=== PATIENT | female | born 1965 | race Caucasian/White ===

== ENCOUNTER 2019-06-23 16:06 | Emergency (ER) | payer BC ==
[~2019-06-23] VITALS: Ht 162.6 cm; Wt 47.2 kg
[2019-06-23 16:06] VITALS: BP 124/79
[2019-06-23] MEDS ORDERED: ALBUTEROL SULFATE/IPRATROPIU 3 ML SOL IH ONE (16:40)
[2019-06-23] MEDS ORDERED: KETOROLAC 30 MG/ML VIAL IVP ONE (16:40)
[2019-06-23] MEDS ORDERED: KETOROLAC 30 MG/ML VIAL IM ONE (17:05)
[2019-06-23 17:22] LABS: BASOPHILS # (AUTO) 0.1 K/uL (0.00-0.22); BASOPHILS % (AUTO) 1.1 % (0.0-2.0); EOSINOPHILS # (AUTO) 0.3 K/uL (0-0.4); EOSINOPHILS % (AUTO) 5.9 % (0.0-4.0); HEMATOCRIT 40.7 % (36-48); HEMOGLOBIN 13.2 g/dL (12.0-16.0); LYMPHOCYTES # (AUTO) 2.3 K/uL (2.5-16.5); LYMPHOCYTES % (AUTO) 46.7 % (20.5-51.1); MEAN CORPUSCULAR HEMOGLOBIN 28 pg (27-31); MEAN CORPUSCULAR HGB CONC 32 g/dL (33-37); MEAN CORPUSCULAR VOLUME 87.7 fL (80-94); MONOCYTES # (AUTO) 0.5 K/uL (0.8-1.0); MONOCYTES % (AUTO) 9.6 % (1.7-9.3); NEUTROPHILS # (AUTO) 1.8 K/uL (1.8-7.7); NEUTROPHILS % (AUTO) 36.7 % (42.2-75.2); PLATELET COUNT (AUTO) 211 K/uL (140-450); RED BLOOD CELL COUNT(AUTO) 4.63 MIL/uL (4.20-5.40); WHITE BLOOD COUNT (AUTO) 4.9 K/uL (4.8-10.8)
[2019-06-23 17:34] LABS: ANION GAP 11.3 (8-16); CARBON DIOXIDE 29.7 mmol/L (21-32); CREATININE 0.8 mg/dL (0.6-1.3)
[2019-06-23] MEDS ORDERED: NACL 0.9% 1,000 ML IV ONE (17:40)
[2019-06-23 17:41] LABS: ALBUMIN 3.6 g/dL (3.4-5.0); TOTAL BILIRUBIN 0.3 mg/dL (0.0-1.0)
[2019-06-23 18:06] LABS: APPEARANCE,URINE CLEAR (CLEAR); BILIRUBIN,URINE NEGATIVE (NEGATIVE); BLOOD, URINE NEGATIVE (NEGATIVE); COLOR,URINE YELLOW (YELLOW); LEUKOCYTE ESTERASE ,URINE TRACE (NEGATIVE); NITRITE, URINE NEGATIVE (NEGATIVE); UGLUCOSE NEGATIVE (NEGATIVE)
[2019-06-23 18:12] LABS: BARBITURATE, URINE NEG. ng/ml (NEG <=200); BENZODIAZEPINE, URINE NEG. ng/mL (NEG <=200); CANNABINOID, URINE POS. ng/mL (NEG <=50); COCAINE, URINE NEG. ng/mL (NEG <=300); OPIATE, URINE NEG. ng/mL (NEG <=2000); PHENCYCLIDINE SCREEN,URINE NEG. ng/mL (NEG <=25)
[2019-06-23 18:31] LABS: RBC,URINE 0-5 /HPF (0-5)
[2019-06-23 19:15] VITALS: BP 122/85
== END 2019-06-23 19:15 | disposition home or self-care (01) ==
LOC: MED 16:06
DX: R53.1 Weakness (principal); R42 Dizziness and giddiness; R51 Headache; F15.90 Other stimulant use, unspecified, uncomplicated; F17.290 Nicotine dependence, other tobacco product, uncomplicated; Z90.49 Acquired absence of other specified parts of digestive tract; Z71.6 Tobacco abuse counseling
CPT/HCPCS: 36415; 70450; 71045; 80053; 80305; 81001; 81025; 84484; 85025; 87086; 93005; 93880; 94640; 96361; 96372; 99284; J1885; J7030; J7620; Q0092

== ENCOUNTER 2019-10-09 00:17 | Emergency (ER) | payer BC ==
[~2019-10-09] VITALS: Ht 162.6 cm; Wt 53.1 kg
[2019-10-09 00:30] VITALS: BP 137/87
--- NOTE | 2019-10-09 00:37 | NUR ---
AMBULATES TO LOBBY WITH STEADY UPRIGHT GAIT.
--- NOTE | 2019-10-09 00:51 | NUR ---
54 Y/O FEMALE LEFT FOOT PAIN RADIATING UP BODY INTO ARM X 1 WEEK. ALSO C/O FRANCOIS. <3 SECONDS; SKIN DRY AND COOL. +2 PEDAL PULSES NOTED. ERMD MADE AWARE OF STATUS. SIDE RAILX1. WILL CONTINUE TO MONITOR. PMH-- CAROTID ARTERY BLOCKAGE RX-- "CRYSTAL METH" X 3 DAYS AGO
--- NOTE | 2019-10-09 00:51 | NUR ---
PT AMBULATED TO BED 4
--- NOTE | 2019-10-09 01:15 | NUR ---
PATIENT ELOPED FROM FACILITY. DISCHARGE INSTRUCTIONS NOT GIVEN TO PATIENT. DR. GREER NOTIFIED.
== END 2019-10-09 01:15 | disposition left against medical advice (07) ==
LOC: MED 00:17
DX: M72.2 Plantar fascial fibromatosis (principal); E78.00 Pure hypercholesterolemia, unspecified; F17.210 Nicotine dependence, cigarettes, uncomplicated; F15.10 Other stimulant abuse, uncomplicated; Z88.8 Allergy status to other drugs, medicaments and biological substances; Z71.6 Tobacco abuse counseling
CPT/HCPCS: 99281

== ENCOUNTER 2020-05-05 02:05 | Emergency (ER) | payer BC ==
[~2020-05-05] VITALS: Ht 165.1 cm; Wt 54.4 kg
--- NOTE | 2020-05-05 02:08 | NUR ---
PT TAKEN TO BED 8 VIA GURNEY WITH EMS ASSISTANCE.
[2020-05-05 02:10] VITALS: BP 121/73
--- NOTE | 2020-05-05 02:10 | NUR ---
PT 55 Y/O FEMALE [facility] BLS -TRANSIENT. PT HAS C/O 04/30 LOW BACK PAIN "IT'S CHRONIC." PT STATES "PAIN IS UNBERABLE TONIGHT." PT ALERT AND ORIENTED TO PERSON, PLACE, AND SITUATION. PT DENIES ABD PAIN, PAINFUL URINATION. AFEBRILE, DENIES N/V/D. PT RESPIRATIONS ARE EVEN AND UNLABORED. SKIN IS WARM AND DRY TO TOUCH. PT ADMITS TO USING METH X 2 DAYS AGO. PT BED IS LOCKED AND IN LOWEST POSITION. MEDHX: CHRONIC BACK PAIN ALLERGIES: NKA
--- NOTE | 2020-05-05 02:27 | NUR ---
ERMD AT BEDSIDE.
[2020-05-05] MEDS ORDERED: ACETAMINOPHEN 325 MG TAB PO ONE (02:30)
[2020-05-05] MEDS ORDERED: CYCLOBENZAPRINE 10 MG TAB PO ONE (02:30)
[2020-05-05] MEDS ORDERED: LIDOCAINE 5% 1 EA PATCH TP STA (02:51)
[2020-05-05 03:30] VITALS: BP 121/73
--- NOTE | 2020-05-05 03:30 | NUR ---
DCPatient discharged with v/s stable. Written and verbal after care instructions given and explained. Patient alert, oriented and verbalized understanding of instructions. Ambulatory with steady gait. All questions addressed prior to discharge. ID band removed. Patient advised to follow up with PMD. Rx of FLEXARIL given. Patient educated on indication of medication including possible reaction and side effects. Opportunity to ask questions provided and answered. PT REFUSED TO SIGN PAPERWORK AND LEFT ED WITHOUT PAPERWORK. REFUSED BUS PASS. HOMELESS PACKET GIVEN.
[2020-05-05] MEDS ORDERED: LIDOCAINE 5% 1 EA PATCH TP SCH (09:00)
== END 2020-05-05 03:33 | disposition home or self-care (01) ==
LOC: MED 02:05
DX: G89.29 Other chronic pain (principal); M54.5 Low back pain; F15.10 Other stimulant abuse, uncomplicated
CPT/HCPCS: 99283